=== PATIENT | female | born 1995 | race Caucasian/White ===

== ENCOUNTER 2018-01-21 15:18 | Emergency (ER) | payer OTHER ==
--- NOTE | 2018-01-21 16:13 | ED Physician Documentation ---
PD HPI FEMALE - Stated complaint Stated Complaint: FEMALE - Chief complaint Chief Complaint: Abd Pain - History obtained from History obtained from: Patient - History of Present Illness Timing - onset: Today Timing - details: Gradual onset (had some brown discharge like early period, then had redder blood and some clots. Some lower pelvic cramps. denies vaginal discharge nor dysuria.), Waxing and waning Associated symptoms: Pelvic pain (mild cramps), Vaginal bleeding. No: Fever, Vaginal discharge, Dysuria Contributing factors: IUD (placed few months ago. had not had period since it was placed.), Sexually active. No: Exposed to STD Similar symptoms before: Has not had sx before Review of Systems Constitutional: denies: Fever, Chills, Myalgias Nose: denies: Rhinorrhea / runny nose, Congestion Throat: denies: Sore throat Respiratory: denies: Cough GI: denies: Vomiting, Diarrhea : reports: Vaginal bleeding. denies: Dysuria, Frequency, Discharge Skin: denies: Rash, Lesions Neurologic: denies: Generalized weakness Endocrine: denies: Easy bruising / bleeding PD PAST MEDICAL HISTORY - Past Surgical History Past Surgical History: No - Present Medications Home Medications: Ambulatory Orders Medication Instructions Recorded Confirmed Levonorgestrel [Mirena] 01/21/18 - Allergies Allergies/Adverse Reactions: Allergies Allergy/AdvReac Type Severity Reaction Status Date / Time No Known Drug Allergies Allergy Verified 03/06/15 18:03 - Social History Does the pt smoke?: No Smoking Status: Never smoker Does the pt drink ETOH?: No Does the pt have substance abuse?: No - Immunizations Immunizations are current?: Yes PD ED PE NORMAL - Vitals Vital signs reviewed: Yes - General General: Alert and oriented X 3, No acute distress, Well developed/nourished - Cardiac Cardiac: RRR, No murmur - Respiratory Respiratory: Clear bilaterally - Abdomen Abdomen: Normal bowel sounds, Soft, Non tender - Female Female : Clinical Documentation Spec present, Other (external normal. vault with some mild dark blood c/w menstrueal bleeding. No discharge seen.) - Rectal Rectal: Deferred - Back Back: No CVA TTP - Derm Derm: Normal color, Warm and dry, No rash Results - Vitals Vitals: Vital Signs - 24 hr 01/21/18 01/21/18 15:27 17:25 Temperature 36.5 C Heart Rate 98 86 Respiratory 16 16 Rate Blood Pressure 129/87 H 117/69 O2 Saturation 99 98 Oxygen O2 Source Room air - Labs Labs: Laboratory Tests 01/21/18 16:30 Urine Color LT. YELLOW Urine Clarity CLEAR Urine pH 6.0 Ur Specific Latty <=1.005 Urine Protein NEGATIVE Urine Glucose (UA) NEGATIVE Urine Ketones NEGATIVE Urine Occult Blood LARGE H Urine Nitrite NEGATIVE Urine Bilirubin NEGATIVE Urine Urobilinogen 0.2 (NORMAL) Ur Leukocyte Esterase NEGATIVE Urine RBC 0-5 Urine WBC 0-3 Ur Squamous Epith Cells FEW Squamous Urine Bacteria None Seen Ur Microscopic Review INDICATED Urine Culture Comments NOT INDICATED Urine HCG, Qual NEGATIVE PD MEDICAL DECISION MAKING - ED course Complexity details: considered differential (bedside U/S showed IUD apparent in uterus. Vaginal exam did not look like vaginitis/infection. Strings seen in appropriate location.), d/w patient - Sepsis Event Vital Signs: Vital Signs - 24 hr 01/21/18 01/21/18 15:27 17:25 Temperature 36.5 C Heart Rate 98 86 Respiratory 16 16 Rate Blood Pressure 129/87 H 117/69 O2 Saturation 99 98 Oxygen O2 Source Room air Departure - Departure Disposition: 01 Home, Self Care Clinical Impression: Uterine bleeding, IUD (intrauterine device) in place Condition: Stable Record reviewed to determine appropriate education?: Yes Follow-Up: [facility] [Provider Group] Comments: The IUD appears in place on ultrasound and the strings appear about the right length to me. The IUD may have been dislodged causing some uterine bleeding and this typically will stop in a few days and the IUD will settle back in place in the uterine wall. Tylenol or ibuprofen if needed for pains or cramps. Recheck if the bleeding does not stop over the next several days. Discharge Date/Time: 01/21/18 17:25
[2018-01-21 16:48] LABS: BILIRUBIN,URINE NEGATIVE (NEGATIVE); GLUCOSE, URINE (UA) NEGATIVE (NEGATIVE); KETONES,URINE (UA) NEGATIVE (NEGATIVE); LEUKOCYTE ESTERASE, URINE NEGATIVE (NEGATIVE); NITRITE,URINE NEGATIVE (NEGATIVE); OCCULT BLOOD,URINE LARGE (NEGATIVE); PROTEIN,URINE NEGATIVE (NEGATIVE); UROBILINOGEN,URINE 0.2 (NORMAL) E.U./dL (NORMAL)
[2018-01-21 16:51] LABS: CLARITY,URINE CLEAR (CLEAR)
[2018-01-21 16:52] LABS: HCG UR QUAL NEGATIVE
[2018-01-21 17:01] LABS: RBC,URINE 0-5 /HPF (0-5); SQUAMOUS EPITHELIAL CELL,UR FEW Squamous (<= Few)
[2018-01-21 17:02] LABS: BACTERIA,URINE None Seen /HPF (None Seen)
[2018-01-21 17:26] VITALS: BP 117/69
== END 2018-01-21 17:25 | disposition home or self-care (01) ==
LOC: ED 15:18
DX: N93.9 Abnormal uterine and vaginal bleeding, unspecified (principal); Z97.5 Presence of (intrauterine) contraceptive device
CPT/HCPCS: 81001; 81003; 81025; 87086; 87491; 87591; 99283

== ENCOUNTER 2018-09-17 10:42 | Emergency (ER) | payer OTHER ==
[2018-09-17 10:57] VITALS: BP 136/88
[2018-09-17] MEDS ORDERED: IPRATROPIUM/ALBUTEROL 3 ML NEB INH STA (13:18)
[2018-09-17] MEDS ORDERED: DEXAMETHASONE 10 MG/ML VIAL PO STA (13:18)
--- NOTE | 2018-09-17 13:20 | ED Physician Documentation ---
PD HPI URI - Stated complaint Stated Complaint: COUGH/CONGESTION - Chief complaint Chief Complaint: Resp - History obtained from History obtained from: Patient, Family - History of Present Illness Timing - onset: How many days ago (4) Timing duration: Days (4) Timing details: Gradual onset, Still present Associated symptoms: Fever, Nasal congestion, Rhinorrhea, Sore throat, Productive cough, Dyspnea Contributing factors: Sick contact Improves by: Rest, Medication Similar symptoms before: Has not had sx before Recently seen: Not recently seen - Additional information Additional information: Previously well 23-year-old female was developed a cough and congestion she has had a low-grade fever as well and a bit of a sore throat. She has noticed that it is difficult for her to get a full deep breath and that she is out of breath when she gets up the stairs at home. She has not ever had to use an inhaler previously. Review of Systems Constitutional: reports: Fever Eyes: denies: Decreased vision Ears: denies: Ear pain Nose: reports: Rhinorrhea / runny nose, Congestion Throat: reports: Sore throat Cardiac: denies: Chest pain / pressure, Palpitations Respiratory: reports: Dyspnea, Cough GI: denies: Vomiting PD PAST MEDICAL HISTORY - Past Medical History Past Medical History: No - Past Surgical History Past Surgical History: Yes HEENT: Myringotomy (tubes) - Present Medications Home Medications: Ambulatory Orders Medication Instructions Recorded Confirmed Levonorgestrel [Mirena] 01/21/18 Albuterol Sulf [Ventolin Hfa 1 - 2 puffs INH Q4HR PRN #1 inhaler 09/17/18 Inhaler] Amox/Clav 875/125 [Augmentin] 1 each PO Q12H #20 tablet 09/17/18 Bupropion HCl [Wellbutrin Xl] 09/17/18 - Allergies Allergies/Adverse Reactions: Allergies Allergy/AdvReac Type Severity Reaction Status Date / Time No Known Drug Allergies Allergy Verified 09/17/18 10:57 - Social History Does the pt smoke?: No Smoking Status: Never smoker Does the pt drink ETOH?: No Does the pt have substance abuse?: No - Immunizations Immunizations are current?: Yes PD ED PE NORMAL - Vitals Vital signs reviewed: Yes (tachy and hypertensive ) - General General: Alert and oriented X 3, No acute distress, Well developed/nourished - HEENT HEENT: Atraumatic, PERRL, EOMI, Other (Left TM is clear the right is centrally inflamed with distorted landmarks. ) - Neck Neck: Supple, no meningeal sign, No bony TTP - Cardiac Cardiac: RRR, No murmur - Respiratory Respiratory: No respiratory distress, Clear bilaterally, Other (diminished breath sounds. ) - Abdomen Abdomen: Soft, Non tender - Back Back: No CVA TTP, No spinal TTP - Derm Derm: Normal color, Warm and dry, No rash - Extremities Extremities: No deformity, No edema - Neuro Neuro: Alert and oriented X 3, reception centre manager 2-12 intact, No motor deficit, No sensory deficit, Normal speech Eye Opening: Spontaneous Motor: Obeys Commands Verbal: Oriented GCS Score: 15 - Psych Psych: Normal mood, Normal affect Results - Vitals Vitals: Vital Signs - 24 hr 09/17/18 10:54 Temperature 36.8 C Heart Rate 126 H Respiratory 14 Rate Blood Pressure 136/88 H O2 Saturation 99 Oxygen O2 Source Room air PD MEDICAL DECISION MAKING - ED course Complexity details: reviewed old records, considered differential, d/w patient, d/w family ED course: 23-year-old female with cough and congestion has right otitis media and she has some reactive airway disease as well. She is administered dexamethasone 10 mg orally here in the emergency department and given a DuoNeb treatment. We will place her on some Augmentin. Departure - Departure Disposition: 01 Home, Self Care Clinical Impression: Otitis media Qualifiers: Otitis media type: suppurative Chronicity: acute Laterality: right Recurrence: not specified as recurrent Spontaneous tympanic membrane rupture: without spontaneous rupture Qualified Code(s): H66.001 - Acute suppurative otitis media without spontaneous rupture of ear drum, right ear Reactive airway disease Qualifiers: Asthma severity: mild Asthma persistence: intermittent Asthma complication type: with acute exacerbation Qualified Code(s): J45.21 - Mild intermittent asthma with (acute) exacerbation Condition: Stable Instructions: ED Reactive Airway Disease, ED Otitis Media Acute Adult Follow-Up: [facility] [Provider Group] Prescriptions: Albuterol Sulf [Ventolin Hfa Inhaler] 1 - 2 puffs INH Q4HR PRN #1 inhaler PRN Reason: Shortness Of Air/Wheezing Amox/Clav 875/125 [Augmentin] 1 each PO Q12H #20 tablet Forms: Activity restrictions
[2018-09-17] MEDS ORDERED: CHERRY SYRUP 10 ML UDC PO ONE (13:25)
== END 2018-09-17 13:39 | disposition home or self-care (01) ==
LOC: ED 10:42
DX: H66.001 Acute suppurative otitis media without spontaneous rupture of ear drum, right ear (principal); J45.21 Mild intermittent asthma with (acute) exacerbation; Z96.22 Myringotomy tube(s) status
CPT/HCPCS: 94640; 94664; 99281; 99283; A9270